=== PATIENT | female | born 1980 | race Caucasian/White ===

== ENCOUNTER 2017-06-09 18:50 | Emergency (ER) | payer MEDICAID ==
--- NOTE | 2017-06-09 19:10 | Emergency Department Record ---
History of Present Illness - General Chief complaint: Pain Stated complaint: FALL Time Seen by Provider: 06/09/17 19:02 Source: Patient Mode of Arrival: Ambulatory - History of Present Illness Initial comments: The patient states she was waiting at the counter at [facility] when she slipped on a wet spot on the floor causing her to nearly fall to the floor. She grasped the counter with her right arm, wrenching her shoulder, knee and twisting her ankle, all on the right side. She thought she would be OK, but over the next hour the discomfort worsened. MD Complaint: Extremity pain Onset/Timin -: Hour(s) Location: Right, Ankle, Shoulder History of Same: Yes Severity scale (1-10): 8 Worsens with: Exertion, Walking Associated Symptoms: Arthralgias - Related Data Home Medications Medication Instructions Recorded Confirmed Last Taken Diphenhydramine HCl [Benadryl 50 mg PO ONCE tab 02/25/17 06/09/17 Unknown Allergy] Allergies Allergy/AdvReac Type Severity Reaction Status Date / Time codeine Allergy Severe BODY ACHES Verified 06/09/17 19:18 gluten Allergy ABDOMINAL Verified 06/09/17 19:18 PAIN Travel Screening - Travel/Exposure Within Last 30 Days Have you traveled within the last 30 days?: No - Travel/Exposure Within Last Year Have you traveled outside the [place] in the last year?: No - Additonal Travel Details Have you been exposed to anyone with a communicable illness?: No - Travel Symptoms Symptom Screening: None Review of Systems Reviewed: No additional complaints except as noted below Constitutional: Reports: As per HPI. Denies: Chills, Fever, Malaise, Night sweats, Weakness, Weight change Eyes: Reports: As per HPI. Denies: Eye discharge, Eye pain, Photophobia, Vision change ENT: Reports: As per HPI. Denies: Congestion, Dental pain, Ear pain, Epistaxis , Hearing loss, Throat pain Respiratory: Reports: As per HPI. Denies: Cough, Dyspnea, Hemoptysis, Stridor, Wheezes Cardiovascular: Reports: As per HPI. Denies: Arrhythmia, Chest pain, Dyspnea on exertion, Edema, Murmurs, Orthopnea, Palpitations, Paroxysmal nocturnal dyspnea, Rheumatic Fever, Syncope Endocrine: Reports: As per HPI. Denies: Fatigue, Heat or cold intolerance, Polydipsia, Polyuria Gastrointestinal: Reports: As per HPI. Denies: Abdominal pain, Constipation, Diarrhea, Hematemesis, Hematochezia, Melena, Nausea, Vomiting Genitourinary: Reports: As per HPI. Denies: Abnormal menses, Discharge, Dyspareunia, Dysuria, Frequency, Hematuria, Incontinence, Retention, Urgency Musculoskeletal: Reports: As per HPI. Denies: Arthralgia, Back pain, Gout, Joint swelling, Myalgia, Neck pain Skin: Reports: As per HPI. Denies: Bruising, Change in color, Change in hair/ nails, Lesions, Pruritus, Rash Neurological: Reports: As per HPI. Denies: Abnormal gait, Confusion, Headache, Numbness, Paresthesias, Seizure, Tingling, Tremors, Vertigo, Weakness Psychiatric: Reports: As per HPI. Denies: Anxiety, Auditory hallucinations, Depression, Homicidal thoughts, Suicidal thoughts, Visual hallucinations Hematological/Lymphatic: Reports: As per HPI. Denies: Anemia, Blood Clots, Easy bleeding, Easy bruising, Swollen glands Past Medical History - SOCIAL HISTORY Smoking Status: Current every day smoker Alcohol Use: None Drug Use: None - RESPIRATORY Hx Respiratory Disorders: No - CARDIOVASCULAR Hx Cardio Disorders: Yes Hx Hypertension: Yes - NEURO Hx Neuro Disorders: Yes Comment:: vertigo - GI Hx GI Disorders: Yes Hx Celiac Disease: Yes - Hx Genitourinary Disorders: No - ENDOCRINE Hx Endocrine Disorders: No - MUSCULOSKELETAL Hx Musculoskeletal Disorders: Yes Hx Arthritis: Yes (starting arthritis in shoulder.) - PSYCH Hx Psych Problems: No - HEMATOLOGY/ONCOLOGY Hx Hematology/Oncology Disorders: No Family Medical History Any Significant Family History?: No Hx Diabetes: Grandparents Physical Exam - General General Appearance: Alert, Oriented x3, Cooperative, No acute distress - Head Head exam: Normal inspection - Eye Eye exam: Normal appearance, PERRL, EOMI Pupils: Normal accommodation - ENT ENT exam: Normal exam, Mucous membranes moist, Normal external ear exam, Normal orophraynx, TM's normal bilaterally Ear exam: Normal external inspection. negative: External canal tenderness Nasal Exam: Normal inspection. negative: Discharge, Sinus tenderness Mouth exam: Normal external inspection, Tongue normal Teeth exam: Normal inspection. negative: Dental caries Throat exam: Normal inspection. negative: Tonsillar erythema, Tonsillar exudate - Neck Neck exam: Normal inspection, Full ROM. negative: Lymphadenopathy, Meningismus , Tenderness - Respiratory Respiratory exam: Normal lung sounds bilaterally. negative: Accessory muscle use, Chest wall tenderness, Prolonged expiratory, Respiratory distress - Cardiovascular Cardiovascular Exam: Regular rate, Normal rhythm, Normal heart sounds - GI/Abdominal GI/Abdominal exam: Soft, Normal bowel sounds. negative: Tenderness - Rectal Rectal exam: Deferred - exam: Deferred - Extremities Extremities exam: Normal inspection, Full ROM, Normal capillary refill, Tenderness (Right shoulder difusely tender with ROM intact; right knee tender over patella, especially on flexion; right ankle with lateral malleolar tenderness on palpation.) - Back Back exam: Reports: Normal inspection, Full ROM. Denies: CVA tenderness (R), CVA tenderness (L), Muscle spasm, Paraspinal tenderness, Rash noted, Tenderness , Vertebral tenderness - Neurological Neurological exam: Alert, CN II-XII intact, Normal gait, Oriented X3, Reflexes normal - Psychiatric Psychiatric exam: Normal affect, Normal mood - Skin Skin exam: Dry, Intact, Normal color, Warm Course Vital Signs 06/09/17 18:55 Temperature 98.2 F Pulse Rate 85 Respiratory 16 Rate Blood Pressure 159/90 Pulse Ox 98 Medical Decision Making - Management Options MDM Management: No Additional Work-up Planned - Data Complexity MDM Data: X-Ray Ordered and/or Reviewed (Right shoulder, Right ankle, right knee xrays: all negative for acute abnormality, chronic arthritis changes per radiologist.) Disposition Disposition: Discharge Clinical Impression: Right ankle sprain Qualifiers: Encounter type: initial encounter Involved ligament of ankle: other ligament Qualified Code(s): S93.491A - Sprain of other ligament of right ankle, initial encounter Patellar contusion Qualifiers: Encounter type: initial encounter Laterality: right Qualified Code(s): S80.01XA - Contusion of right knee, initial encounter Right shoulder strain Qualifiers: Encounter type: initial encounter Qualified Code(s): S46.911A - Strain of unspecified muscle, fascia and tendon at shoulder and upper arm level, right arm , initial encounter Disposition: Home, Self-Care Condition: (1) Good Instructions: Ankle Sprain (ED), Shoulder Sprain (ED), Knee Pain (ED) Additional Instructions: Decreased ambulation until symptoms resolve. Ice to contusions first 48 hours. Sling right shoulder during daytime for comfort. Perform range of motion to that ankle 4 times daily while using the sling. Air-splint right ankle 5 days. Limit ambulation. Tylenol or ibuprofen as directed as needed for pain. Follow up with PCP 3- days for recheck. Quality - Quality Measures Quality Measures: N/A - Blood Pressure Screening Does Patient Have Any of the Following: Active Dx of HTN Blood Pressure Classification: Hypertensive Reading Systolic Measurement: 159 Diastolic Measurement: 90 Screening for High Blood Pressure: Patient Exclusion, Hx of HTN [G9744]
[2017-06-09] MEDS: ACETAMINOPHEN 325 MG TAB PO ONE (19:14)
--- NOTE | 2017-06-11 14:55 | RADIOLOGY REPORT ---
EXAM: RIGHT ANKLE HISTORY: FELL TODAY. RIGHT ANKLE PAIN. TECHNIQUE: Three views of the right ankle were obtained. Comparison: None. FINDINGS: A tiny old calcific density is present inferior to the medial malleolus. There is no acute fracture, dislocation, or significant soft tissue swelling. The ankle mortise is intact. Plantar and posterior calcaneal spurs are present. IMPRESSION: 1. NO ACUTE RIGHT ANKLE PATHOLOGY. 2. CHRONIC FINDINGS ABOVE. JOB NUMBER: [id number] MTDD
--- NOTE | 2017-06-11 14:58 | RADIOLOGY REPORT ---
EXAM: RIGHT KNEE HISTORY: RIGHT KNEE PAIN STATUS POST FALL TONIGHT. TECHNIQUE: Four views of the right knee were obtained. Comparison: 03/15/16. Encounter: Initial. FINDINGS: The bones are intact. There is no acute fracture, dislocation, or joint effusion. Small marginal osteophytes are present within all three compartments. Enthesophyte formation is present at the upper pole of the patella. IMPRESSION: 1. MILD TRICOMPARTMENTAL ARTHRITIC CHANGES. 2. NO ACUTE RIGHT KNEE PATHOLOGY. JOB NUMBER: [id number] MTDD
--- NOTE | 2017-06-11 15:00 | RADIOLOGY REPORT ---
EXAM: RIGHT SHOULDER HISTORY: RIGHT SHOULDER PAIN STATUS POST FALL TONIGHT. TECHNIQUE: Three views of the right shoulder were obtained. Comparison: 01/09/16. Encounter: Initial. FINDINGS: There are minor arthritic changes of the acromioclavicular joint which appear stable. The subacromial space is maintained. The remaining osseous structures are unremarkable. There is no acute fracture or dislocation. IMPRESSION: 1. NO ACUTE RIGHT SHOULDER PATHOLOGY. 2. MILD ARTHRITIC CHANGES OF THE ACROMIOCLAVICULAR JOINT. JOB NUMBER: [id number] MTDD
== END 2017-06-09 20:11 | disposition home or self-care (01) ==
LOC: ER 18:50
DX: S93.491A Sprain of other ligament of right ankle, initial encounter (principal); S80.01XA Contusion of right knee, initial encounter; S46.911A Strain of unspecified muscle, fascia and tendon at shoulder and upper arm level, right arm, initial encounter; W01.0XXA Fall on same level from slipping, tripping and stumbling without subsequent striking against object, initial encounter; Y92.512 Supermarket, store or market as the place of occurrence of the external cause
CPT/HCPCS: 99283; 99284

== ENCOUNTER 2017-10-26 14:06 | Emergency (ER) | payer MEDICAID ==
[2017-10-26 15:00] LABS: INFLUENZA A NEGATIVE (NEGATIVE); INFLUENZA B NEGATIVE (NEGATIVE); STREP A SCREEN NEGATIVE (NEGATIVE)
[2017-10-26] MEDS ORDERED: IBUPROFEN 400 MG TABLET PO ONE (15:07)
[2017-10-26] MEDS ORDERED: ACETAMINOPHEN 500 MG TABLET PO ONE (15:07)
--- NOTE | 2017-10-26 15:11 | Emergency Department Record ---
History of Present Illness - General Chief Complaint: Cough Stated Complaint: COUGH,FEVER,BODY ACHES Time Seen by Provider: 10/26/17 15:04 Source: Patient Mode of Arrival: Ambulatory Limitations: No limitations - History of Present Illness Initial Comments: 37 yo female presents to ED for evaluation of fever and cough symptoms for the past 2 days. Patient denies history of lung disease, reports that she has been experiencing coughing fits and has been unable to catch her breath during the episode. Patient denies taking anything for her symptoms prior to arrival. MD Complaint: Cough, Fever Onset/Timin -: Days(s) Severity: Moderate Quality: Aching Consistency: Constant Improves With: Nothing Worsens With: Deep breaths Associated Symptoms: Denies other symptoms Treatments Prior to Arrival: None - Related Data Previous Rx's Medication Instructions Recorded Azithromycin [Zithromax] 250 mg PO DAILY #6 tablet 10/26/17 Allergies Allergy/AdvReac Type Severity Reaction Status Date / Time codeine Allergy Severe BODY ACHES Verified 10/26/17 14:50 gluten Allergy ABDOMINAL Verified 10/26/17 14:50 PAIN Travel Screening - Travel/Exposure Within Last 30 Days Have you traveled within the last 30 days?: No Review of Systems Constitutional: Reports: Chills, Fever, Malaise, Weakness. Denies: Night sweats Eyes: Denies: Eye discharge, Eye pain ENT: Reports: Congestion. Denies: Ear pain, Epistaxis Respiratory: Reports: Cough, Dyspnea. Denies: Wheezes Cardiovascular: Denies: Chest pain, Dyspnea on exertion, Edema Endocrine: Denies: Fatigue, Heat or cold intolerance Gastrointestinal: Denies: Abdominal pain, Vomiting Genitourinary: Denies: Incontinence, Retention Musculoskeletal: Denies: Arthralgia, Back pain Skin: Denies: Bruising, Change in color Neurological: Denies: Abnormal gait, Confusion, Seizure Psychiatric: Denies: Anxiety Hematological/Lymphatic: Denies: Anemia, Blood Clots Past Medical History - SOCIAL HISTORY Smoking Status: Current every day smoker Alcohol Use: None Drug Use: None - RESPIRATORY Hx Respiratory Disorders: No - CARDIOVASCULAR Hx Cardio Disorders: Yes Hx Hypertension: Yes Comment:: high cholesterol - NEURO Hx Neuro Disorders: Yes Comment:: vertigo - GI Hx GI Disorders: Yes Hx Celiac Disease: Yes - Hx Genitourinary Disorders: No - ENDOCRINE Hx Endocrine Disorders: No - MUSCULOSKELETAL Hx Musculoskeletal Disorders: Yes Hx Arthritis: Yes (starting arthritis in shoulder.) - PSYCH Hx Psych Problems: No - HEMATOLOGY/ONCOLOGY Hx Hematology/Oncology Disorders: No Family Medical History Any Significant Family History?: Yes Hx Diabetes: Grandparents Physical Exam - General General Appearance: Alert, Oriented x3, Cooperative, Moderate distress Limitations: No limitations - Head Head exam: Atraumatic, Normocephalic, Normal inspection Head exam detail: negative: Abrasion, Contusion, Ellington's sign, General tenderness, Hematoma, Laceration - Eye Eye exam: Normal appearance. negative: Conjunctival injection, Periorbital swelling, Periorbital tenderness, Scleral icterus - ENT Ear exam: negative: Auricular hematoma, Auricular trauma Nasal Exam: negative: Active bleeding, Discharge, Dried blood, Foreign body Mouth exam: negative: Drooling, Laceration, Muffled voice, Tongue elevation - Neck Neck exam: Normal inspection. negative: Meningismus, Tenderness - Respiratory Respiratory exam: Decreased breath sounds. negative: Rales, Respiratory distress, Rhonchi, Stridor - Cardiovascular Cardiovascular Exam: Normal rhythm, Normal heart sounds, Tachycardia - GI/Abdominal GI/Abdominal exam: Soft. negative: Rebound, Rigid, Tenderness - Rectal Rectal exam: Deferred - exam: Deferred - Extremities Extremities exam: Normal inspection. negative: Calf tenderness, Pedal edema, Tenderness - Back Back exam: Denies: CVA tenderness (R), CVA tenderness (L) - Neurological Neurological exam: Alert, Normal gait, Oriented X3 - Psychiatric Psychiatric exam: Normal affect, Normal mood - Skin Skin exam: Normal color. negative: Abrasion Type of lesion: negative: abrasion Course Vital Signs 10/26/17 14:51 Temperature 101.8 F H Pulse Rate 119 H Respiratory 20 Rate Blood Pressure 137/80 Pulse Ox 96 - Reevaluation(s) Reevaluation #1: 10/26/17 15:42 Influenza: Negative Rapid strep: Negative CXR: No acute process Patient was reassessed and updated on all results, will initiate treatment with Zithromax for her symptoms. No meningeal signs on examination, and the patient appears stable for discharge at this time. Medical Decision Making - Lab Data Lab Results 10/26/17 Range/Units 14:40 Influenza Type A Ag Negative (NEGATIVE) Influenza Type B Ag Negative (NEGATIVE) Group A Strep Screen Negative (NEGATIVE) Disposition Disposition: Discharge Clinical Impression: URI (upper respiratory infection) Qualifiers: URI type: unspecified URI Qualified Code(s): J06.9 - Acute upper respiratory infection, unspecified Disposition: Home, Self-Care Condition: (2) Stable Instructions: Upper Respiratory Infection (ED) Additional Instructions: Return to ED if your symptoms worsen or if you have any concerns. Zithromax as directed. Follow-up with your family doctor in 3-5 days as directed. Prescriptions: Azithromycin [Zithromax] 250 mg PO DAILY #6 tablet Forms: Patient Portal Access Time of Disposition: 15:44 Quality - Quality Measures Quality Measures: N/A - Blood Pressure Screening Does Patient Have Any of the Following: No Blood Pressure Classification: Pre-Hypertensive BP Reading Systolic Measurement: 137 Diastolic Measurement: 80 Screening for High Blood Pressure: < Pre-Hypertensive BP, F/U Documented > [ G8950] Pre-Hypertensive Follow-up Interventions: Referral to alternative/primary care provider.
--- NOTE | 2017-10-28 00:58 | RADIOLOGY REPORT ---
EXAM: CHEST 2 VIEWS HISTORY: COUGH AND FEVER. TECHNIQUE: PA and lateral upright views of the chest were obtained. COMPARISON: 07/05/2014. FINDINGS: The heart, mediastinum, and pulmonary vasculature are normal. There is mild elevation of the right hemidiaphragm. There are no acute infiltrates or effusion. There is no pneumothorax. The bones appear intact. IMPRESSION: NO ACUTE CHEST PATHOLOGY. JOB NUMBER: [id number] MTDD
== END 2017-10-26 15:57 | disposition home or self-care (01) ==
LOC: ER 14:06
DX: J06.9 Acute upper respiratory infection, unspecified (principal); R05 Cough; R50.81 Fever presenting with conditions classified elsewhere; I10 Essential (primary) hypertension; F17.210 Nicotine dependence, cigarettes, uncomplicated
CPT/HCPCS: 71020; 87400; 87880; 99283